=== PATIENT | female | born 1990 | race Caucasian/White ===

== ENCOUNTER 2023-12-28 16:56 | Emergency (ER) | payer OTHER, SELFPAY ==
[2023-12-28 17:04] VITALS: BP 100/65; PULSE 88; RESP 14; TEMP 36.3; O2SAT 100
[2023-12-28 17:24] LABS: EDUAAPPEAR Cloudy; EDUABILI Negative; EDUABLOOD Negative; EDUACOLOR1 Yellow; EDUAGLUCOSE Negative; EDUAKETONE Negative; EDUALEUKO Negative; EDUANITRATE Negative; EDUAPROTEIN Trace; EDUAUROBILI 0.2
--- NOTE | 2023-12-28 17:33 | ED.FEMALEGU ---
HPI - Female Genitourinary General Chief complaint: Urogenital-Female Stated complaint: Urinary Problem Time Seen by Provider: 12/28/23 17:20 Source: patient, RN notes reviewed and old records reviewed Mode of arrival: ambulatory Limitations: no limitations History of Present Illness HPI Narrative: 33 year old female who presents to [facility] care with complaints of 4-5 day history of burning with urination and urinary frequency for 1 week. Patient reports no bleeding no concerns for STDs denies any vaginal discharge or itching. patient reports no nausea or vomiting or any fevers, chills or sweats. Patient denies any suprapubic pain or any CVA tenderness. Patient has not taken any OTC medications for her symptoms. MD elicited complaint: UTI Onset (ago): day(s) (4-5) Location of symptoms: urethra Severity: moderate Quality of pain: burning Vaginal discharge: none Vaginal bleeding: none Related Data Home Medications Medication Instructions Recorded Confirmed mirtazapine 12/28/23 Allergies Allergy/AdvReac Type Severity Reaction Status Date / Time Unable to Assess Allergy Verified 12/28/23 17:08 Review of Systems Review of Systems: CONSTITUTIONAL: Denies fever, chills, or sweats. CARDIOVASCULAR: Denies chest pain, palpitations, or edema. RESPIRATORY: Denies cough or dyspnea. GASTROINTESTINAL: Denies abdominal pain, nausea, vomiting, or diarrhea. GENITOURINARY: Reports dysuria, frequency, no urgency. Denies flank pain or hematuria. SKIN: Denies rash or itching. MUSCULOSKELETAL: Denies back pain or myalgia. Denies CVA tenderness NEUROLOGIC: Denies headache All systems reviewed & are unremarkable except as noted in HPI and below [facility] Past Medical History Medical History (Updated 12/30/23 @ 11:11 by Uyen Martinez NP) No pertinent past medical history Surgical History Surgical History (Updated 12/30/23 @ 11:12 by Uyen Martinez NP) No history of previous surgery Social History Social History (Updated 12/30/23 @ 11:12 by Uyen Martinez NP) Smoking status: Never smoker Alcohol intake: current Alcohol use details: social Substance use type: does not use Living arrangements: with family Gender identity (if verbalized by the patient): Female Comments At time of signature, agree with nursing past medical, surgical, social and family history. There is no relevant family history pertinent to the presenting complaint Exam Narrative: GENERAL: Well-appearing, well-nourished, and in no acute distress. HEAD: Normocephalic, atraumatic. NECK: Supple.no lymphadenopathy CHEST: Clear to auscultation. No respiratory distress. SAO2 100% on room air HEART: Regular rate and rhythm. No murmur heard. Normal peripheral pulses. ABDOMEN: Soft, nontender, nondistended, normal active bowel sounds. No CVA tenderness urinary burning and frequency EXTREMITIES: Normal range of motion. No edema. SKIN: Warm, dry, no rash. NEURO: No focal deficits. Alert and oriented x3. Course Course Emergency Course: Patient is aware of diagnosis, understands and agrees to treatment plan.? Anticipatory guidance given.? Patient agrees to follow-up as directed and is aware of reasons to seek care at the emergency department. Portions of this record may have been created with voice recognition software Level of Care: Express Care Visit Vital Signs Vital signs: Vital Signs Temperature 36.3 C L 12/28/23 17:04 Pulse Rate 88 12/28/23 17:04 Respiratory Rate 14 12/28/23 17:04 Blood Pressure 100/65 12/28/23 17:04 Pulse Oximetry 100 12/28/23 17:04 Oxygen Delivery Room Air 12/28/23 17:04 Temperature 36.3 C L 12/28/23 17:04 Pulse Rate 88 12/28/23 17:04 Respiratory Rate 14 12/28/23 17:04 Blood Pressure 100/65 12/28/23 17:04 Pulse Oximetry 100 12/28/23 17:04 Oxygen Delivery Room Air 12/28/23 17:04 MDM - Female Genitourinary MDM Narrative Medical decision making narr
== END 2023-12-28 17:49 | disposition home or self-care (01) ==
PROVIDERS: Emergency Provider Registered Nurse
DX: R30.0 Dysuria (principal); R35.0 Frequency of micturition
CPT/HCPCS: 81003; 87086; 87088; 99203; G0463

== ENCOUNTER 2024-01-05 13:36 | Emergency (ER) | payer OTHER, SELFPAY ==
[2024-01-05 13:44] VITALS: BP 103/62; PULSE 82; RESP 18; TEMP 37.1; O2SAT 99
--- NOTE | 2024-01-05 14:15 | ED.URI ---
HPI - URI/Sore Throat General Chief Complaint: Upper Respiratory Infection Stated Complaint: head congestion Time Seen by Provider: 01/05/24 14:15 Source: patient, RN notes reviewed and old records reviewed Mode of arrival: ambulatory Limitations: no limitations History of Present Illness HPI Narrative: 33 year old female presents to [facility] care with complaints of 4 day history of head congestion, nasal drainage which is clear, headache, chills fatigue, ear pain, sore throat and decreased appetite. Patient reports that she had negative COVID and Flu test at [employer] this morning concerned works at [employer] in their building. Patient reports that she has been taking OTC Theraflu and also some cold medications for her symptoms, states general malaise reports no known fevers. Patient reports that she took antibiotic last week for UTI symptoms. MD elicited complaint: sore throat, rhinorrhea, nasal congestion and other (headache, decreased appetite,fatigue) Onset (ago): day(s) (4) Severity: moderate Description of mucous: clear Able to tolerate fluids by mouth: Yes Treatments prior to arrival: cold medicine and other (Theraflu) Related Data Allergies Allergy/AdvReac Type Severity Reaction Status Date / Time No Known Allergies Allergy Verified 01/05/24 14:02 Review of Systems Review of Systems: CONSTITUTIONAL: Reports malaise, chills, sweats, no known fever. EYES: Denies visual changes, redness, or discharge. ENT: Reports rhinorrhea, congestion, sinus pain, otalgia and sore throat. CARDIOVASCULAR: Denies chest pain, palpitations, or edema. RESPIRATORY: Reports no acute cough.? Denies dyspnea. GASTROINTESTINAL: Denies abdominal pain, nausea, vomiting, diarrhea SKIN: Denies rash or itching. MUSCULOSKELETAL: Denies myalgia. NEUROLOGIC: Reports headache. All systems reviewed & are unremarkable except as noted in HPI and below [facility] Past Medical History Medical History No pertinent past medical history Surgical History Surgical History No history of previous surgery Social History Social History Smoking status: Never smoker Alcohol intake: current Alcohol use details: social Substance use type: does not use Living arrangements: with family Gender identity (if verbalized by the patient): Female Comments At time of signature, agree with nursing past medical, surgical, social and family history. There is no relevant family history pertinent to the presenting complaint Exam Narrative: GENERAL: Well-appearing, well-nourished, and in no acute distress. HEAD: Normocephalic EYES: PERRLA, conjunctivae clear ENT: Nares clear, turbinates edematous and erythematous, clear discharge. Mucous membranes moist. TM pearly frey with dull light reflex bilaterally; no tragal tenderness. Oropharynx erythematous without lesions. Tonsils not enlarged and without exudate, no drooling, no hoarseness, no trismus, uvula midline.post nasal drainage NECK: Supple. No lymphadenopathy CHEST: Clear to auscultation, breath sounds equal. No wheezing, rhonchi, rales, or stridor. No respiratory distress, speaks in full sentences.SAO2 99% on room air HEART: Regular rate and rhythm. No murmur heard. SKIN: Warm, dry, no rash. NEURO: Alert and oriented x3. PSYCH: Normal mood and affect Course Course Emergency Course: Patient is aware of diagnosis, understands and agrees to treatment plan.? Anticipatory guidance given.? Patient agrees to follow-up as directed and is aware of reasons to seek care at the emergency department. Portions of this record may have been created with voice recognition software Level of Care: Express Care Visit Vital Signs Vital signs: Vital Signs Temperature 37.1 C 01/05/24 13:44 Pulse Rate 82
[2024-01-05 14:37] LABS: EDSTREPNEGPOS1 Presumptive Negative
== END 2024-01-05 15:00 | disposition home or self-care (01) ==
PROVIDERS: Emergency Provider Registered Nurse
DX: J06.9 Acute upper respiratory infection, unspecified (principal); J32.9 Chronic sinusitis, unspecified
CPT/HCPCS: 87081; 87880; 99213; G0463

== ENCOUNTER 2024-11-30 12:30 | Emergency (ER) | payer BC, SELFPAY ==
[2024-11-30 12:35] VITALS: BP 101/64; PULSE 77; RESP 20; TEMP 36.6; O2SAT 95
--- NOTE | 2024-11-30 12:42 | ED_ITS ---
HPI - Allergic Reaction General Chief complaint: Skin/Abscess/Foreign Body Stated complaint: Wasp sting/allergic Time Seen by Provider: 11/30/24 12:42 Source: patient Mode of arrival: ambulatory Limitations: no limitations History of Present Illness HPI narrative: 34-year-old female presents with complaint of bee sting to right forearm for 4 days. Has been applying hydrocortisone cream and taking Benadryl with no relief. All systems reviewed and negative except as noted above. Related Data Home Medications ?Medication ?Instructions ?Recorded ?Confirmed ?Last Taken ?Type atogepant 60 mg tablet (Qulipta) mg 11/30/24 Unknown History baclofen 10 mg tablet mg 11/30/24 Unknown History escitalopram oxalate 20 mg tablet mg 11/30/24 Unknown History nortriptyline 10 mg capsule mg 11/30/24 Unknown History Allergies Allergy/AdvReac Type Severity Reaction Status Date / Time No Known Allergies Allergy Verified 11/30/24 12:38 Review of Systems Review of Systems: CONSTITUTIONAL: Denies fever, chills, or sweats. EYES: Denies visual changes, redness, or discharge. ENT: Denies rhinorrhea, congestion, sore throat, or otalgia. CARDIOVASCULAR: Denies chest pain, palpitations, or edema. RESPIRATORY: Denies cough or dyspnea. GASTROINTESTINAL: Denies abdominal pain, nausea, vomiting, or diarrhea. GENITOURINARY: Denies dysuria or hematuria. SKIN: Reports allergic reaction from bee sting right forearm MUSCULOSKELETAL: Denies back pain, joint pain, or myalgia. NEUROLOGIC: Denies headache, numbness, or weakness. PSYCHIATRIC: Denies anxiety or depression. All other systems reviewed are negative, except as documented in HPI. [facility] Past Medical History Medical History No pertinent past medical history Surgical History Surgical History No history of previous surgery Social History Social History Smoking status: Never smoker Alcohol intake: current Alcohol use details: social Substance use type: does not use Living arrangements: with family Gender identity (if verbalized by the patient): Female Comments At time of signature, agree with nursing past medical, surgical, social and family history. There is no relevant family history pertinent to the presenting complaint. Exam Narrative: GENERAL: This is a well-nourished, well-developed patient, in no apparent distress. HEAD: normocephalic, atraumatic. EYES: PERRL. Sclera clear/white. Vision is grossly intact. EARS: External ears normal NOSE: External nose normal NECK: Neck supple, non-tender without lymphadenopathy, masses or thyromegaly. CARDIOVASCULAR: Regular rate and rhythm without murmurs, gallops, or rubs. RESPIRATORY: Clear to auscultation. Breath sounds equal bilaterally. No wheezes, rales, or rhonchi. SKIN: warm, Dry, intact with no suspicious lesions or rash, good texture and turgor. erythema with mild swelling to posterior aspect right forearm approximately 6 x 7 cm. No warmth or tenderness on palpation. NEURO: awake, alert, and oriented to person, place and time. There were no obvious focal neurologic abnormalities. EXTREMITIES: No joint tenderness, effusion, or edema noted. Course Course Level of Care: Express Care Visit Vital Signs Vital signs: Vital Signs Temperature 36.6 C 11/30/24 12:35 Pulse Rate 77 11/30/24 12:35 Respiratory Rate 20 11/30/24 12:35 Blood Pressure 101/64 11/30/24 12:35 Pulse Oximetry 95 11/30/24 12:35 Oxygen Delivery Room Air 11/30/24 12:35 Temperature 36.6 C 11/30/24 12:35 Pulse Rate 77 11/30/24 12:35 Respiratory Rate 20 11/30/24 12:35 Blood Pressure 101/64 11/30/24 12:35 Pulse Oximetry 95 11/30/24 12:35 Oxygen Delivery Room Air 11/30/24 12:35 Reviewed MDM - Allergic Reaction MDM Narrative Medical decision making narrative: will treat bee sting with Medrol Dosepak and triamcinolone ointment. Patient agrees with plan of care. Recommend she continue taking a daily antihistamine. Discharge Plan Discharge Clinical Impression: Allergic to insect bites and stings Patient Disposition: Home Condition: Stable Instructions: Insect Bite or Sting (ED) Additional Instructions: take medications as prescribed. Continue taking it daily antihistamine such as Claritin or Zyrtec. See your primary care Provider if symptoms are not improving. Patient Language: Sinhala Prescriptions: New methylprednisolone [Medrol (Ajay)] 4 mg tablets,dose pack See Rx Instructions PO .COMPLEX Qty: 21 0RF Rx Instructions: orally per package directions triamcinolone acetonide 0.1 % cream 1 applic topical BID PRN (Reason: insect bite) Qty: 30 0RF No Action baclofen 10 mg tablet nortriptyline 10 mg capsule escitalopram oxalate 20 mg tablet Qulipta 60 mg tablet Follow-up/Referrals: PHYSICIAN,NETWORK LIAISON [Primary Care Provider] - Time of Disposition: 12:48
== END 2024-11-30 12:52 | disposition home or self-care (01) ==
PROVIDERS: Emergency Provider Nurse Practitioner Family
DX: T63.481A Toxic effect of venom of other arthropod, accidental (unintentional), initial encounter (principal); Z79.899 Other long term (current) drug therapy
CPT/HCPCS: 99213; G0463